=== PATIENT | female | born 1950 | race Caucasian/White ===

== ENCOUNTER 2017-02-13 09:07 | Emergency (ER) | payer OTHER ==
[~2017-02-13] VITALS: Ht 160 cm; Wt 63.0 kg
[~2017-02-13 09:07] MED LIST: LISI-725 PO; METO25TA56 PO
[2017-02-13 09:12] VITALS: TEMP 36.7; Ht 160 cm; Wt 63.0 kg
--- NOTE | 2017-02-13 10:24 | EMERGENCY ROOM VISIT NOTE ---
ED Visit Note First contact with patient: 09:57 CHIEF COMPLAINT: Tick in the left flank HISTORY OF PRESENT ILLNESS: Patient is a 66-year-old white female who presents to emergency department for evaluation of a tick bite. She noticed it on her lower back/left flank early this morning. She attempted but was unable to remove it. She states that it has been on for less than 24 hours. REVIEW OF SYSTEMS: Head: No headache, injury or neck pain. A Neck: No pain , stiffness, or swelling. Neurological: No headache, new changes in mental status, vertigo, focal weakness, numbness. Gastrointestinal: No abdominal pain , blood in stools, diarrhea, loss of appetite, nausea, or vomiting. General: No fever or chills, fatigue, loss of appetite, or significant recent weight gain or loss. PMH: Electronic medical records are reviewed and summarized as above/below. See Problem List.. SOCIAL HISTORY: Patient lives at home. Non-smoker, occasional alcohol use. PHYSICAL EXAM: There is an intact tick on left low back. There is a small zone of inflammation around it. EMERGENCY DEPARTMENT COURSE: After alcohol cleansing, the intact tick was removed with the Tick Twister device. Bacitracin and bandaid were applied. 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 PERFUME (Allergy, Severe, SWELLING, HEART RACE, HEADACHE, 02/13/17) GASOLINE (Allergy, Intermediate, SWELLING, HEART RACE, HEADACHE., 02/13/17) Vital Signs Date Time Temp Pulse Resp B/P Pulse Ox O2 Delivery O2 Flow Rate FiO2 02/13/17 10:41 76 20 221/106 96 02/13/17 09:12 36.7 95 16 215/109 97 Room Air Departure Information Impression Primary Impression: Tick bite Prescriptions No Active Prescriptions or Reported Meds Referrals No Doctor, Assigned (PCP) Patient Instructions My [facility] [place] Additional Instructions Use Ibuprofen or Tylenol as needed for pain/discomfort. Follow up with family physician for continued care and treatment; rashes, bullet lesion, muscle or joint pain. Watch for signs of infection; increasing redness and swelling, pus like drainage or fevers. Keep antibiotic ointment on the site for 2-3 days. Return to the ED for signs of infection.
[2017-02-13 10:41] VITALS: BP 221/106; PULSE 76; O2SAT 96
== END 2017-02-13 10:43 | disposition home or self-care (01) ==
LOC: C.EDB 09:08 → C.EDA 10:43
DX: S30.860A Insect bite (nonvenomous) of lower back and pelvis, initial encounter (principal); W57.XXXA Bitten or stung by nonvenomous insect and other nonvenomous arthropods, initial encounter

== ENCOUNTER 2017-10-26 21:26 | Observation (INO) | payer OTHER ==
[~2017-10-26] VITALS: Ht 160 cm; Wt 60.7 kg
[2017-10-26] MEDS ORDERED: HydrALAZINE HCL 20 MG/ML VIAL IV. STA ×3 (22:23→23:43)
--- NOTE | 2017-10-26 22:37 | EMERGENCY ROOM VISIT NOTE ---
History Report prepared by Arnav: Gilmer Baxter Under the Supervision of: Dr. Cole Delcid M.D. First contact with patient: 22:16 Chief Complaint: HYPERTENSION Stated Complaint: ELEVATED BP 250/130 History of Present Illness The patient is a 66 year old female who presents to the Emergency Room for evaluation of constant hypertension beginning two days ago. Patient notes longstanding history of HTN with previous ED visit about 5 years ago for HTN issues. Over last few days she has been feeling generalized weakness and notes she checked her BP at home last 2 days and was noted to have BP > 200. Earlier in the day she notes she had a burning sensation in her left chest area which seemed to resolve on its own with no other symptoms. Nothing makes better nor worse. Denies Headache, vision changes, appetite change, neck pain, individual arm/leg weakness, syncope, change in urinary/bowel. Took OTC Thai BP med ( Tenorec?). Previously prescribed Lisinopril but has not taken it recently. Denies smoking, drug, etoh use. Lives with family. Thai speaking but understands Burundian and family is good at translating and comfortable with this. History of unknown chemical exposure many years ago is noted. Source of History: patient Onset: two days ago Position: other (global) Symptom Intensity: blood pressure above 200 Quality: other (hypertension) Timing: constant Associated Symptoms: + weakness (generalized), No headache, No neck pain Note: She also complains of a burning in her chest. She denies any vision changes, individual arm/leg weakness, syncope, changes in her urinary/bowel, and changes in her appetite. Review of Systems See HPI for pertinent positives & negatives. A total of 10 systems reviewed and were otherwise negative. Past Medical & Surgical Medical Problems: (1) HTN (hypertension) Family History No pertinent family history stated. 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 PERFUME (Allergy, Severe, SWELLING, HEART RACE, HEADACHE, 02/13/17) GASOLINE (Allergy, Intermediate, SWELLING, HEART RACE, HEADACHE., 02/13/17) Physical Exam Vital Signs Date Time Temp Pulse Resp B/P (MAP) Pulse Ox O2 Delivery O2 Flow Rate FiO2 10/27/17 02:00 67 19 153/80 96 10/27/17 01:39 64 15 147/82 97 10/27/17 01:15 62 18 145/74 97 10/27/17 01:00 76 16 145/78 97 10/27/17 00:59 72 16 145/78 97 Room Air 10/27/17 00:40 64 18 154/75 98 10/27/17 00:35 64 23 97 10/27/17 00:30 48 14 102/55 97 10/27/17 00:20 67 20 97 10/27/17 00:15 66 16 146/77 97 10/27/17 00:14 144/77 10/26/17 23:58 62 16 153/79 97 Room Air 10/26/17 23:45 59 16 188/95 97 Room Air 10/26/17 23:30 61 16 193/93 97 10/26/17 23:29 199/95 10/26/17 23:00 63 16 183/87 96 10/26/17 22:52 63 20 161/81 96 10/26/17 22:45 61 17 184/90 96 10/26/17 22:36 59 20 200/92 97 10/26/17 22:31 55 14 10/26/17 22:26 57 16 10/26/17 22:21 62 16 225/108 10/26/17 22:21 60 22 225/108 10/26/17 22:19 59 10/26/17 21:59 36.7 65 18 219/123 96 Room Air Physical Exam GENERAL: Patient is well appearing and in no acute distress. HEENT: No acute trauma, normocephalic atraumatic, mucous membranes moist, no nasal congestion, no scleral icterus. NECK: No stridor, no adenopathy, no meningismus, trachea is midline. LUNGS: No dyspnea. Clear to auscultation and equal bilaterally. No wheeze, no rhonchi. HEART: Regular rate and rhythm. No murmurs, rubs, gallops appreciated. ABDOMEN: Soft, nontender, bowel sounds positive, no masses appreciated, no peritonitis. BACK: No midline tenderness, no CVA tenderness EXTREMITIES: Normal motion all extremities, no cyanosis, no edema. NEUROLOGIC: Alert and oriented, no acute motor or sensory deficits, no focal weakness, cranial nerves grossly intact. SKIN: No rash, no jaundice, no diaphoresis. Medical Decision & Procedures ER Provider Diagnostic Interpretation: Radiology results and stated below per my review and radiologist interpretation: X ray results are stated below per my interpretation: Chest: 1 view: No infiltrate, no effusion, normal cardiac border. Mildly enlarged heart compared to Chest X-RAY from several years ago. CT HEAD: Compared to 11/05/2011 No acute intracranial process. Minimal sinus disease. Radiologist: Noa Pinto M.D. CTA CHEST: No evidence of pulmonary embolism or aortic dissection. Small hiatal hernia. Mild atelectatic changes. No pneumothorax or pleural effusion. Laboratory Results 10/26/17 22:20 Red Blood Count 4.71, Mean Corpuscular Volume 92.4, Mean Corpuscular Hemoglobin 31.2, Mean Corpuscular Hemoglobin Concent 33.8, Mean Platelet Volume 10.2, Neutrophils (%) (Auto) 52.0, Lymphocytes (%) (Auto) 39.7, Monocytes (%) (Auto) 5.9, Eosinophils (%) (Auto) 1.4, Basophils (%) (Auto) 0.8, Neutrophils # (Auto) 5.11, Lymphocytes # (Auto) 3.90, Monocytes # (Auto) 0.58, Eosinophils # (Auto) 0.14, Basophils # (Auto) 0.08 10/26/17 22:20 Test 10/26/17 00:00 10/26/17 22:20 Urine Color YELLOW Urine Appearance CLEAR (CLEAR) Urine pH 7.0 (4.5-7.5) Urine Specific [place] 1.008 (1.000-1.030) Urine Protein NEG (NEG) Urine Glucose (UA) NEG (NEG) Urine Ketones NEG (NEG) Urine Occult Blood NEG (NEG) Urine Nitrite NEG (NEG) Urine Bilirubin NEG (NEG) Urine Urobilinogen NEG (NEG) Urine Leukocyte Esterase TRACE (NEG) Urine WBC (Auto) 1-5 /hpf (0-5) Urine RBC (Auto) 0-4 /hpf (0-4) Urine Hyaline Casts (Auto) 0 /lpf (0-5) Urine Epithelial Cells (Auto) 0-5 /lpf (0-5) Urine Bacteria (Auto) NEG (NEG) White Blood Count 9.83 K/uL (4.8-10.8) Red Blood Count 4.71 M/uL (4.2-5.4) Hemoglobin 14.7 g/dL (12.0-16.0) Hematocrit 43.5 % (37-47) Mean Corpuscular Volume 92.4 fL (80-100) Mean Corpuscular Hemoglobin 31.2 pg (25-34) Mean Corpuscular Hemoglobin Concent 33.8 g/dl (32-36) Platelet Count 290 K/uL (130-400) Mean Platelet Volume 10.2 fL (7.4-10.4) Neutrophils (%) (Auto) 52.0 % Lymphocytes (%) (Auto) 39.7 % Monocytes (%) (Auto) 5.9 % Eosinophils (%) (Auto) 1.4 % Basophils (%) (Auto) 0.8 % Neutrophils # (Auto) 5.11 K/uL (1.4-6.5) Lymphocytes # (Auto) 3.90 K/uL (1.2-3.4) Monocytes # (Auto) 0.58 K/uL (0.11-0.59) Eosinophils # (Auto) 0.14 K/uL (0-0.5) Basophils # (Auto) 0.08 K/uL (0-0.2) RDW Standard Deviation 42.8 fL (36.4-46.3) RDW Coefficient of Variation 12.7 % (11.5-14.5) Immature Granulocyte % (Auto) 0.2 % Immature Granulocyte # (Auto) 0.02 K/uL (0.00-0.02) Anion Gap 6.0 mmol/L (3-11) Est Creatinine Clear Calc Drug Dose 45.9 ml/min Estimated GFR () 67.7 Estimated GFR (Non- 58.4 BUN/Creatinine Ratio 20.8 (10-20) Calcium Level 9.1 mg/dl (8.5-10.1) Magnesium Level 2.4 mg/dl (1.8-2.4) Total Bilirubin 0.6 mg/dl (0.2-1) Direct Bilirubin < 0.1 mg/dl (0-0.2) Aspartate Amino Transf (AST/SGOT) 22 U/L (15-37) Alanine Aminotransferase (ALT/SGPT) 26 U/L (12-78) Alkaline Phosphatase 68 U/L (45-117) Troponin I 0.021 ng/ml (0-0.045) Total Protein 8.0 gm/dl (6.4-8.2) Albumin 4.1 gm/dl (3.4-5.0) Thyroid Stimulating Hormone (TSH) 18.800 uIu/ml (0.300-4.500) Laboratory results as reviewed by me. Medications Administered Medications (Trade) Dose Ordered Sig/Nicki Route Start Time Stop Time Status Last Admin Dose Admin Hydralazine HCl (HydrALAZINE INJ) 10 mg NOW STAT IV. 10/26/17 22:23 10/26/17 22:25 DC 10/26/17 22:29 10 MG Hydralazine HCl (HydrALAZINE INJ) 5 mg NOW STAT IV. 10/26/17 23:43 10/26/17 23:44 DC 10/26/17 23:49 5 MG Sodium Chloride 1,000 ml @ 75 mls/hr [id number] STAT IV 10/27/17 00:31 10/27/17 03:38 DC 10/27/17 00:38 75 MLS/HR Ondansetron HCl (Zofran Inj) 4 mg STK-MED ONCE .ROUTE 10/27/17 00:33 10/27/17 00:34 DC 10/27/17 00:36 4 MG ECG Indication: other (hypertension) Rate (beats per minute): 59 Rhythm: sinus bradycardia Findings: T-wave inversion (Lateral), no ectopy, other (Mild ST depressions across lateral leads, no STEMI) Comparison ECG Date: 11/05/2011 Change: Compared to previous, T wave inversions are new. ED Course 2216: The patient was evaluated in room A3. A complete history and physical exam was performed. 0020: I reevaluated the patient. Her blood pressure improved to the systolic 150s. She has no current symptoms and is agreeable to hospitalist evaluation. 0022: Upon reevaluation, the patient is stable. Discussed results and treatment plan with the patient. She verbalized understanding and agreement with the treatment plan. The patient will be evaluated for further management. Discussed the patient's case with Dr. Janice Torres [facility]. The patient will be evaluated for further treatment and disposition. 0031: I spoke to Dr. Camacho. He requests a CT angio of the patient's chest. Medical Decision Differential: Benign Hypertension, Hypertensive Urgency/Emergency, Cardiovascular Pathology, Endocrine, Metabolic/Electrolyte, Renal Disease, Endorgan Damage, amongst other pathologies entertained. 66 yr old deneen arrives with severe HTN which is associated with some generalized weakness and noted EKG abnormalities which have changed in lateral leads. Given 10mg Hydralazine with rapid drop in BP to point where she noted some visual changes and mild headache, thus CT head ordered which was negative. BP started trending up and thus given just 5mg IV hydralazine with even further BP drop and resultant nausea, vomiting, bradycardia. Zofran for symptoms and doing a bit better. Labs, CXR unremarkable. hospitalist in to evaluate and requested that patient have CTA Chest done which was fortunately unremarkable. Will bring in to hospitalist service for further evaluation and treatment. Of note, TSH quite off which is consistent with not taking her medications. Head Trauma GCS Score: 15 Medication Reconcilliation Current Medication List: was personally reviewed by me Blood Pressure Screening Patient's blood pressure: Elevated blood pressure Blood pressure will be monitored closely by hospitalist. Consults Time Called: 002 Consulting Physician: Dr. Camacho - Melissa [facility] Returned Call: 0022 Discussed the patient's case. The patient will be evaluated for further treatment and disposition. 0031: Dr. Camacho requests a CT angio of the patient's chest. Impression Primary Impression: Hypertensive emergency Additional Impressions: Acute electrocardiogram changes Generalized weakness Hypothyroidism Scribe Attestation The scribe's documentation has been prepared under my direction and personally reviewed by me in its entirety. I confirm that the note above accurately reflects all work, treatment, procedures, and medical decision making performed by me. Departure Information Dispostion Being Evaluated By Hospitalist Referrals No Doctor, Assigned (PCP) Patient Instructions My [facility] Problem Qualifiers
[2017-10-26] MEDS ORDERED: [UNRECOGNIZED DRUG - OTHER] PO (22:48)
--- NOTE | 2017-10-26 22:49 | DIAGNOSTIC IMAGING REPORT ---
CHEST ONE VIEW PORTABLE CLINICAL HISTORY: Chest Pain dyspnea COMPARISON STUDY: No previous studies for comparison. FINDINGS: The bones soft tissues and hemidiaphragms are normal. The cardiomediastinal silhouette is normal. The lungs are clear. The pulmonary vasculature is normal. IMPRESSION: Negative chest. The above report was generated using voice recognition software. It may contain grammatical, syntax or spelling errors. Electronically signed by: Hakan Ruiz M.D. 10/26/2017 10:47 PM Dictated Date/Time: 10/26/2017 10:46 PM
[2017-10-26 22:56] LABS: BASO % 0.8 %; BASO ABS # 0.08 K/uL (0-0.2); EOS % 1.4 %; EOS ABS # 0.14 K/uL (0-0.5); HEMATOCRIT 43.5 % (37-47); HEMOGLOBIN 14.7 g/dL (12.0-16.0); IG# 0.02 K/uL (0.00-0.02); LYMPH % 39.7 %; MEAN CELL VOLUME 92.4 fL (80-100); MEAN CORPUSCULAR HEMOGLOBIN 31.2 pg (25-34); MEAN CORPUSCULAR HGB CONC 33.8 g/dl (32-36); MEAN PLATELET VOLUME 10.2 fL (7.4-10.4); MONO % 5.9 %; MONO ABS # 0.58 K/uL (0.11-0.59); NEUT ABS # 5.11 K/uL (1.4-6.5); PLATELET COUNT 290 K/uL (130-400); RED CELL DISTRIBUTION WIDTH CV 12.7 % (11.5-14.5); RED CELL DISTRIBUTION WIDTH SD 42.8 fL (36.4-46.3); WHITE BLOOD COUNT 9.83 K/uL (4.8-10.8)
[2017-10-26 23:12] LABS: BLOOD UREA NITROGEN 21 mg/dl (7-18); CALCIUM 9.1 mg/dl (8.5-10.1); CARBON DIOXIDE 28 mmol/L (21-32); CREATININE 1.01 mg/dl (0.60-1.20); GLUCOSE 111 mg/dl (70-99); POTASSIUM 3.2 mmol/L (3.5-5.1); SODIUM 138 mmol/L (136-145)
[2017-10-27] MEDS ORDERED: ONDANSETRON INJ 2 MG/ML 2 ML VIAL IV STA (00:31)
[2017-10-27] MEDS ORDERED: SODIUM CHLORIDE 0.9% 1000ML 1,000 ML IV STA (00:31)
[2017-10-27] MEDS ORDERED: ONDANSETRON INJ 2 MG/ML 2 ML VIAL ONE (00:33)
[2017-10-27] MEDS ORDERED: OPTIRAY 320 IV PRN (00:45)
[2017-10-27] MEDS ORDERED: POTASSIUM CHLORIDE 10 MEQ TABCR PO STA (02:13)
[2017-10-27] MEDS ORDERED: ACETAMINOPHEN 325 MG TAB PO PRN (02:15)
[2017-10-27] MEDS ORDERED: ONDANSETRON 8MG OD TAB PO PRN (02:15)
[2017-10-27] MEDS ORDERED: NITROGLYCERIN 0.4 MG SL PER TAB CHARGE SL PRN (02:15)
[2017-10-27 03:02] LABS: ALBUMIN 4.1 gm/dl (3.4-5.0); ALKALINE PHOSPHATASE 68 U/L (45-117); ALT/SGPT 26 U/L (12-78); AST/SGOT 22 U/L (15-37)
[2017-10-27 03:27] VITALS: BP 191/88; PULSE 64; TEMP 36.7; O2SAT 97; Ht 160 cm; Wt 60.7 kg
[2017-10-27] MEDS ORDERED: NSS + 20MEQ KCL 1000ML 1,000 ML IV SCH (03:30)
[2017-10-27 03:37] VITALS: BP 151/78
[2017-10-27] MEDS ORDERED: IV FLUIDS COMPLETED PRN (03:45)
--- NOTE | 2017-10-27 04:43 | History and Physical ---
History & Physical Date & Time of Service: Oct 27, 2017 at 04:33 Chief Complaint: Acute Electrocardiogram Changes, Hypertensive Primary Care Physician: RV. Nunn MD History of Present Illness Source: patient, family, hospital records History of present illness is limited as performed through Norwegian-speaking stripper and taper. Family reports that she has had generalized weakness, and she had checked her blood pressure the past 2 days at home and reports her systolic blood pressure was greater than 200. She did have a burning sensation on the left side of her chest, which did resolve earlier in the day without intervention. This chest pain did return as she had gotten hydralazine via the ED to lower pressure, and a CTA of the chest was recommended at that time performed was negative for dissection or PE. Patient has previously been prescribed lisinopril, and reportedly took an unknown [id number] Norwegian blood pressure medication, but a generally been noncompliant with medical therapy. Patient reportedly had some form of unknown chemical exposure in the past. 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 PERFUME (Allergy, Severe, SWELLING, HEART RACE, HEADACHE, 02/13/17) GASOLINE (Allergy, Intermediate, SWELLING, HEART RACE, HEADACHE., 02/13/17) Home Medications Scheduled PRN [tenorik], 1 TAB PO DAILY PRN for hnt Review of Systems Review of systems is as relayed by her Norwegian-speaking family as stripper and taper and is somewhat limited in that regard, and is as noted above. Physical Exam Vital Signs Date Time Temp Pulse Resp B/P (MAP) Pulse Ox O2 Delivery O2 Flow Rate FiO2 10/27/17 03:37 151/78 (102) 10/27/17 03:27 36.7 64 18 191/88 97 Room Air 10/27/17 02:30 66 21 166/88 97 10/27/17 02:27 64 10/27/17 02:00 67 19 153/80 96 10/27/17 01:39 64 15 147/82 97 10/27/17 01:15 62 18 145/74 97 10/27/17 01:00 76 16 145/78 97 10/27/17 00:59 72 16 145/78 97 Room Air 10/27/17 00:40 64 18 154/75 98 10/27/17 00:35 64 23 97 10/27/17 00:30 48 14 102/55 97 10/27/17 00:20 67 20 97 10/27/17 00:15 66 16 146/77 97 10/27/17 00:14 144/77 10/26/17 23:58 62 16 153/79 97 Room Air 10/26/17 23:45 59 16 188/95 97 Room Air 10/26/17 23:30 61 16 193/93 97 10/26/17 23:29 199/95 10/26/17 23:00 63 16 183/87 96 10/26/17 22:52 63 20 161/81 96 10/26/17 22:45 61 17 184/90 96 10/26/17 22:36 59 20 200/92 97 10/26/17 22:31 55 14 10/26/17 22:26 57 16 10/26/17 22:21 62 16 225/108 10/26/17 22:21 60 22 225/108 10/26/17 22:19 59 10/26/17 21:59 36.7 65 18 219/123 96 Room Air The patient is awake, alert and oriented 3, well developed and well nourished, normocephalic and atraumatic, lying in bed and in intermittently has a painful expression on her face. HEENT--PERRL, EOMI, mucous membranes and oropharynx dry. Neck--supple. No JVD. No bruits. Thyroid normal, trachea midline, no adenopathy. Heart--normal S1 and S2. No murmurs, rubs or gallops. Lungs--clear bilaterally, no respiratory distress, no accessory muscle use. Abdomen--normal bowel sounds and soft. Nontender. Nondistended, no hernias or masses, no organomegaly. Extremities--no cyanosis or clubbing. No edema. There are good distal pulses b/ l. Dermatologic--normal skin turgor, normal color, no abnormal lymph nodes, no rash. Neurologic--cranial nerves II through XII grossly intact. Rheumatologic--normal range of motion. Psychiatric--flat affect, but does appear to be periodically uncomfortable Diagnostics Laboratory Results Results Past 24 Hours Test 10/26/17 22:20 10/27/17 03:52 Range/Units White Blood Count 9.83 4.8-10.8 K/uL Red Blood Count 4.71 4.2-5.4 M/uL Hemoglobin 14.7 12.0-16.0 g/dL Hematocrit 43.5 37-47 % Mean Corpuscular Volume 92.4 80-100 fL Mean Corpuscular Hemoglobin 31.2 25-34 pg Mean Corpuscular Hemoglobin Concent 33.8 32-36 g/dl Platelet Count 290 130-400 K/uL Mean Platelet Volume 10.2 7.4-10.4 fL Neutrophils (%) (Auto) 52.0 % Lymphocytes (%) (Auto) 39.7 % Monocytes (%) (Auto) 5.9 % Eosinophils (%) (Auto) 1.4 % Basophils (%) (Auto) 0.8 % Neutrophils # (Auto) 5.11 1.4-6.5 K/uL Lymphocytes # (Auto) 3.90 1.2-3.4 K/uL Monocytes # (Auto) 0.58 0.11-0.59 K/uL Eosinophils # (Auto) 0.14 0-0.5 K/uL Basophils # (Auto) 0.08 0-0.2 K/uL RDW Standard Deviation 42.8 36.4-46.3 fL RDW Coefficient of Variation 12.7 11.5-14.5 % Immature Granulocyte % (Auto) 0.2 % Immature Granulocyte # (Auto) 0.02 0.00-0.02 K/uL Sodium Level 138 136-145 mmol/L Potassium Level 3.2 3.5-5.1 mmol/L Chloride Level 104 98-107 mmol/L Carbon Dioxide Level 28 21-32 mmol/L Anion Gap 6.0 3-11 mmol/L Blood Urea Nitrogen 21 7-18 mg/dl Creatinine 1.01 0.60-1.20 mg/dl Est Creatinine Clear Calc Drug Dose 45.9 ml/min Estimated GFR () 67.7 Estimated GFR (Non- 58.4 BUN/Creatinine Ratio 20.8 10-20 Random Glucose 111 70-99 mg/dl Calcium Level 9.1 8.5-10.1 mg/dl Magnesium Level 2.4 1.8-2.4 mg/dl Total Bilirubin 0.6 0.2-1 mg/dl Direct Bilirubin < 0.1 0-0.2 mg/dl Aspartate Amino Transf (AST/SGOT) 22 15-37 U/L Alanine Aminotransferase (ALT/SGPT) 26 12-78 U/L Alkaline Phosphatase 68 45-117 U/L Troponin I 0.021 0-0.045 ng/ml Total Protein 8.0 6.4-8.2 gm/dl Albumin 4.1 3.4-5.0 gm/dl Thyroid Stimulating Hormone (TSH) 18.800 0.300-4.500 uIu/ml Diagnostic Radiology Patient Name: ALE BLAS Unit Number: [id number] Dictated: 10/26/172245 Transcribed: 10/26/172245 MS Printed Date/Time: [~ rep prt dt]/[~ rep prt tm] [~ rep ct labl] - [~ rep ct ivnm] [facility] Radiology Department [place] [id number] Dictated: 10/26/172245 Transcribed: 10/26/172245 MS Printed Date/Time: [~ rep prt dt]/[~ rep prt tm] [~ rep ct labl] - [~ rep ct ivnm] [~ rep ct add3]] CHEST ONE VIEW PORTABLE CLINICAL HISTORY: Chest Pain dyspnea COMPARISON STUDY: No previous studies for comparison. FINDINGS: The bones soft tissues and hemidiaphragms are normal. The cardiomediastinal silhouette is normal. The lungs are clear. The pulmonary vasculature is normal. IMPRESSION: Negative chest. The above report was generated using voice recognition software. It may contain grammatical, syntax or spelling errors. Electronically signed by: Hakan Ruiz M.D. 10/26/2017 10:47 PM Dictated Date/Time: 10/26/2017 10:46 PM The status of this report is Signed. Draft = Not yet reviewed or approved by Radiologist. Signed = Reviewed and approved by Radiologist. <AttendingPhy></AttendingPhy> <FamilyPhy>No Doctor, Assigned</FamilyPhy> < PrimaryPhy>No Doctor, Assigned</PrimaryPhy> <UnitNumber>[id number]</UnitNumber> <VisitNumber>[id number]</VisitNumber> <PatientName>ALE BLAS</ PatientName> <DateOfBirth>1950</DateOfBirth> <Location>[facility]</Location> < ServiceDate>10/26/17</ServiceDate> <MNE>ESINDI</MNE> <OrderingPhy>Cole Delcid M.D.</OrderingPhy> <OrderingPhyMNE>f rep ord dr agosto</OrderingPhyMNE> < DictatingPhyMNE>f rep dict dr agosto</DictatingPhyMNE> <CCListMNE>f rep ct norrise</ CCListMNE> <AdmittingPhyMNE>f pt admit dr agosto</AdmittingPhyMNE> <AttendingPhyMNE >f pt attend dr agosto</AttendingPhyMNE> <ConsultingPhyMNE>f pt consult dr agosto</ConsultingPhyMNE> <FamilyPhyMNE>f pt fam dr agosto</FamilyPhyMNE> <OtherPhyMNE>f pt other dr agosto</OtherPhyMNE> < PrimaryPhyMNE>f pt prim care dr agosto</PrimaryPhyMNE> <ReferringPhyMNE>f pt referring dr agosto</ReferringPhyMNE> EKG EKG shows normal sinus rhythm at 61 bpm, with T-wave inversions in leads 1 and aVL, V5 and V6 Impression Assessment and Plan Hypertensive urgency/abnormal EKG-- The patient will be admitted to telemetry for serial cardiac enzymes, serial EKG's, cardiac rhythm monitoring and a 2-D echocardiogram with Dopplers. Patient did get good blood pressure control at the addition of hydralazine 10 mg then 5 mg IV by the ED. We'll place on lisinopril 20 mg by mouth twice a day, and aspirin 81 mg every morning Give potassium chloride 40 mEq by mouth orally for potassium of 3.2. Check a magnesium level. NSS + KCl 20 mEq at 50 ML's per hour. Serial CBC with differential, BMP and magnesium levels. Check a renin and aldosterone level. Consult cardiology for abnormal EKG. Hypothyroidism-- Start Synthroid 50 g daily beginning in the a.m. tomorrow. Will need repeat TSH, free T4 free T3 in 4 weeks. Check a hemoglobin A1c and fasting lipid panel Level of Care Telemetry Advanced Directives Existing Advance Directive: No Existing Living Will: No Existing Power of Carriage Operator: No Resuscitation Status FULL RESUSCITATION VTE Prophylaxis VTE Risk Assessment Done? Y/N: Yes Risk Level: Moderate Given or contraindicated: SCD's
[2017-10-27] MEDS ORDERED: PNEUMOCOCCAL POLYSACCHARIDES 25 MCG/0.5 ML VIAL/SYR IM. ONE (05:15)
[2017-10-27] MEDS ORDERED: INFLUENZA ADMINISTRATION CHARGE ONE (05:15)
[2017-10-27] MEDS ORDERED: PNEUMOCOCCAL ADMINISTRATION CHARGE ONE (05:15)
[2017-10-27] MEDS ORDERED: INFLUENZA VIRUS QUAD VACCINE 0.5 ML SYR IM. ONE (05:15)
[2017-10-27] MEDS ORDERED: LEVOTHYROXINE 50 MCG TAB PO SCH (06:00)
--- NOTE | 2017-10-27 06:32 | DIAGNOSTIC IMAGING REPORT ---
CT HEAD WITHOUT CONTRAST (CT) CLINICAL HISTORY: Visual disturbance, lightheadedness, hypertension. COMPARISON STUDY: 11/05/2011 TECHNIQUE: Axial CT of the brain is performed from the vertex to the skull base. IV contrast was not administered for this examination. A dose lowering technique was utilized adhering to the principles of ALARA. CT DOSE: 537.48 mGy.cm FINDINGS: No intra or extra-axial mass lesions are visualized. There is no CT evidence of acute cortical infarction. There is no evidence of midline shift. There is no acute hemorrhage. No calvarial fractures are visualized. There is no evidence of pathologic ventricular dilatation. There are chronic inflammatory changes involving the left ethmoid sinuses with sinus wall thickening IMPRESSION: No acute intracranial findings Electronically signed by: Jensen Patel M.D. 10/27/2017 6:31 AM Dictated Date/Time: 10/27/2017 6:29 AM
[2017-10-27 07:32] VITALS: BP 153/77; PULSE 61; TEMP 36.6; O2SAT 97
[2017-10-27 07:39] LABS: HEMOGLOBIN A1C 5.6 % (4.5-5.6)
[2017-10-27] MEDS ORDERED: ASPIRIN 81 MG ECTAB PO SCH (09:00)
[2017-10-27] MEDS ORDERED: LISINOPRIL 20 MG TAB PO SCH (09:00)
--- NOTE | 2017-10-27 09:08 | DIAGNOSTIC IMAGING REPORT ---
CHEST COMBO ANGIO DISSECTION CLINICAL HISTORY: Hypertension. Chest pain. COMPARISON STUDY: Chest radiograph October 26, 2017 and November 05, 2011. TECHNIQUE: Unenhanced and arterial phase imaging of the chest was performed. Injection of 118 cc of Optiray 320 IV was uneventful. Sagittal and coronal reconstructions were viewed as well as maximal intensity projections on an independent 3-D workstation. FINDINGS: The caliber of the thoracic aorta is normal. There is no intramural hematoma or dissection within the thoracic aorta. The heart is mildly enlarged. There is no pericardial effusion. No enlarged axillary, mediastinal or hilar lymph nodes are present. There is no pneumomediastinum. A small hiatal hernia is noted. The central airways are patent. There is no consolidation to suggest pneumonia. Subpleural opacities reflect atelectasis. No pneumothorax or pleural effusion is noted. Bony thorax is unremarkable. A 1 cm heavily calcified focus within the pancreatic neck is of doubtful significance. IMPRESSION: 1. No thoracic aortic dissection. 2. No acute intrathoracic findings. 3. Small hiatal hernia. 4. Mild cardiomegaly. Electronically signed by: Dawson Thapa M.D. 10/27/2017 9:06 AM Dictated Date/Time: 10/27/2017 6:45 AM
[2017-10-27 10:41] LABS: CKMB 1.5 ng/ml (0.5-3.6)
[2017-10-27 10:52] VITALS: BP 132/72; PULSE 61; TEMP 36.8; O2SAT 95
[2017-10-27] MEDS ORDERED: OMEGCAP2 PO (11:25)
[2017-10-27] MEDS ORDERED: LSN40 PO (11:25)
[2017-10-27] MEDS ORDERED: ASPEC81 PO (11:25)
--- NOTE | 2017-10-27 11:32 | Discharge Instructions ---
Discharge Instructions Date of Service Oct 27, 2017. Admission Reason for Admission: Uncontrolled hypertension, Dyslipidemia Discharge Discharge Diagnosis / Problem: Uncontrolled hypertension, Dyslipidemia Discharge Goals Goal(s): Improve function, Improve disease control Activity Recommendations Activity Limitations: resume your previous activity . Instructions / Follow-Up Instructions / Follow-Up Medications: - LISINOPRIL: 40mg daily, this is for blood pressure, next dose is due tomorrow morning, you will need follow up blood work in a few weeks with Dr. Dumont for potassium level - FISH OIL: take over the counter, three times a day - ASPIRIN: 81mg daily, enteric coated to protect stomach Hypertension: better controlled on Lisinopril 40mg daily, you NEED to take this every day please follow up closely with Dr. Dumont next week to check your blood pressure as outpatient on Lisinopril, you may need additional medication you need to follow a low sodium diet, less than 2gm a day, read nutrition labels to see how much salt is in food Dyslipidemia (abnormal cholesterol): total cholesterol and LDL cholesterol both high as we discussed, likely a combination of eating too much cholesterol and your body making too much cholesterol my recommendation would be a statin such as Lipitor you can start with the fish oils for now but you need to discuss taking a statin with Dr. Dumont follow a low cholesterol, low fat diet and get regular exercise 5 days a week at a minimum Lastly, as we discussed, untreated high blood pressure and high cholesterol put you at a risk for heart attack and stroke, please take your medications and follow up with your doctor. FOLLOW UP - Dr. Dumont next week Current Hospital Diet Patient's current hospital diet: AHA Diet (Heart Healthy) Discharge Diet Recommended Diet: Low Sodium Diet (2gm Na), Low Fat Diet Pending Studies Studies pending at discharge: no Laboratory Results Hemoglobin A1c Test 10/27/17 05:10 Range/Units Estimated Average Glucose 114 mg/dl Hemoglobin A1c 5.6 4.5-5.6 % Lipid Panel Test 10/27/17 05:10 Range/Units Triglycerides Level 122 0-150 mg/dl Cholesterol Level 273 H 0-200 mg/dl HDL Cholesterol 56 mg/dl Cholesterol/HDL Ratio 4.9 LDL Cholesterol, Calculated 193 mg/dl Medical Emergencies . Who to Call and When: Medical Emergencies: If at any time you feel your situation is an emergency, please call 911 immediately. . Non-Emergent Contact Non-Emergency issues call your: Primary Care Provider Call Non-Emergent contact if: you have any medication questions . . "Provider Documentation" section prepared by Salvador Villegas. . VTE Core Measure Inpt VTE Proph given/why not?: SCD's [place] Drug Monitoring Program Search Results: no issues identified
[2017-10-27 11:46] VITALS: BP 153/77; PULSE 61; TEMP 36.6; O2SAT 97
[2017-10-27] MEDS ORDERED: NURSING VERBAL MED ORDER STA (11:54)
[2017-10-27] MEDS ORDERED: LISINOPRIL 20 MG TAB PO ONE (12:15)
[2017-10-27] MEDS ORDERED: SYN50 PO (13:39)
--- NOTE | 2017-10-28 07:51 | Discharge Summary ---
Discharge Summary Date of Service Oct 27, 2017. Discharge Summary Admission Date: Oct 27, 2017 at 02:01 Discharge Date: Oct 27, 2017 Discharge Disposition: Home Principal Diagnosis: Uncontrolled hypertension Problems/Secondary Diagnoses: Dyslipidemia Hypothyroidism Immunizations: Have You Had Influenza Vaccine: No History of Tetanus Vaccine?: Unknown History of Pneumococcal: No History of Hepatitis B Vaccine: No Procedures: none Consultations: none Medication Reconciliation New Medications: Levothyroxine Sodium (Synthroid) 50 Mcg Tab 1 TAB PO DAILY, #30 TABS 1 Refill [place]-3 Fatty Acids (Fish Oil) 1 Cap Cap 1 CAP PO TID for 30 Days, #90 CAP 1 Refill Aspirin (Aspirin EC Low Dose) 81 Mg Ectab 81 MG PO QAM, #30 TABS 1 Refill Lisinopril (Lisinopril) 40 Mg Tab 40 MG PO DAILY for 30 Days, #30 TABS 2 Refills Discontinued Medications: [tenorik] () 1 TAB PO DAILY PRN for hnt Discharge Exam patient feeling much better in the morning, no chest pain, no back pain, no dyspnea. eating well, no issues urinating or moving bowels. discussed hypertension, importance of being compliant with Lisinopril and following low sodium diet, getting regular exercise, close follow up with her PCP discussed high cholesterol, high LDL, discussed that combined with her hypertension and family h/o stroke and [place], she should really be on a statin she did not want to start a statin just yet, wanted to take fish oil OTC and try to eat less fatty foods, will discuss with PCP discussed high TSH, low T4, she had some kind of exposure earlier in life, was told her thyroid was affected, will start on Synthroid Review of Systems: Constitutional: No fever, No chills, No sweats, No weight loss, No weakness , No fatigue, No problem reported Eyes: No worsening of vision, No eye pain, No redness, No discharge, No diplopia, No problem reported ENT: No hearing loss, No unusual epistaxis, No nasal symptoms, No sore throat, No tinnitus, No dental problems, No trouble swallowing, No problem reported Respiratory: No cough, No sputum, No wheezing, No shortness of breath, No dyspnea on exertion, No dyspnea at rest, No hemoptysis, No problem reported Cardiovascular: No chest pain, No orthopnea, No PND, No edema, No claudication, No palpitations, No problem reported Abdomen: No pain, No nausea, No vomiting, No diarrhea, No constipation, No GI bleeding, No problem reported Musculoskeletal: + joint pain (back pain, had it for a few days, got worse, now it is gone completely), No muscle pain, No swelling, No calf pain, No problem reported Genitourinary - Female: No dysuria, No urinary frequency, No urinary urgency , No urinary incontinence, No urinary retention, No hematuria Neurologic: No memory loss, No paralysis, No weakness, No numbness/tingling , No vertigo, No balance problems, No problem reported Psychiatric: No depression symptoms, No anhedonism, No anxiety, No insomnia , No substance abuse, No problem reported Endocrine: No fatigue, No excessive thirst, No excessive urination, No problem reported Hematologic / Lymphatic: No abnormal bleeding/bruising, No clotting problems , No swollen lymph nodes, No night sweats, No problem reported Integumentary: No rash, No itch, No new/changing skin lesions, No color change, No bleeding, No problem reported Physical Exam: General Appearance: WD/WN, no apparent distress Eyes: normal inspection, EOMI, sclerae normal ENT: normal ENT inspection, hearing grossly normal, pharynx normal Neck: supple, no adenopathy, no JVD, trachea midline Respiratory/Chest: chest non-tender, lungs clear, normal breath sounds, no respiratory distress, no accessory muscle use Cardiovascular: regular rate, rhythm, no edema, no gallop, no JVD, no murmur , normal peripheral pulses Abdomen / GI: normal bowel sounds, non tender, soft, no organomegaly Extremities: normal inspection, no calf tenderness, normal capillary refill , no pedal edema, normal range of motion, pelvis stable 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 CT chest was negative for aortic dissection and CT head was normal. EKG was NSR with some non-specific possible ST changes in lateral leads, but the patient denied chest pain and pressure. Was started on Lisinopril and admitted for rule out of ACS and uncontrolled HTN - Uncontrolled HTN: BP improved to 150's systolic consistently on Lisinopril 20mg BID will d/c on Lisinopril 40mg PO daily, close follow up next week with PCP advised to eat a low sodium diet advised to get regular exercise (she claims that she walks every day) will see her PCP on Monday, BP recheck, may require additional medications should have BMP in a few weeks to check potassium - Dyslipidemia: high cholesterol overall, LDL 190 long discussion regarding risk of [place] and stroke given her family history recommended starting low dose statin therapy in addition to following low cholesterol diet she refused at this time, wants to take fish oil over the counter start aspirin 81mg daily - Hypothyroidism: TSH high at 11 and T4 low will start Synthroid 50mcg no real symptoms of hypothyroidism will need repeat TSH in 6 weeks - EKG changes: mild ST and TW changes but no chest pain or pressure troponin negative x 3 sets no further work up recommend controlling BP with Lisinopril, start aspirin for CAD protection if she would have chest pain as outpatient she could have a stress test does have a family h/o [place] and stroke Total Time Spent: Greater than 30 minutes This includes examination of the patient, discharge planning, medication reconciliation, and communication with other providers. Discharge Instructions Please refer to the electronic Patient Visit Report (Discharge Instructions) for additional information. Follow-Up Dr. Dumont next week Additional Copies To RV. Nunn MD
== END 2017-10-27 12:52 | disposition home or self-care (01) ==
LOC: C.EDB 21:26 → C.2T 10-27 02:01 → ENRESERV 10-27 02:27
PROVIDERS: ADMIT Hospitalist; ATTEND Internal Medicine
DX: I16.0 Hypertensive urgency (principal); E78.5 Hyperlipidemia, unspecified; E03.9 Hypothyroidism, unspecified; R94.31 Abnormal electrocardiogram [ECG] [EKG]; Z79.899 Other long term (current) drug therapy

== ENCOUNTER → 2017-10-30 | Outpatient (CLI) | payer OTHER ==
[~2017-10-30] MED LIST changes: +ASPEC81 PO; -LISI-725 PO; +LSN40 PO; -METO25TA56 PO; +OMEGCAP2 PO; +SYN50 PO
[2017-10-30 18:06] LABS: BLOOD UREA NITROGEN 13 mg/dl (7-18); CALCIUM 9.4 mg/dl (8.5-10.1); CARBON DIOXIDE 28 mmol/L (21-32); CREATININE 1.02 mg/dl (0.60-1.20); GLUCOSE 97 mg/dl (70-99); POTASSIUM 3.7 mmol/L (3.5-5.1); SODIUM 136 mmol/L (136-145)
== END | disposition home or self-care (01) ==
LOC: C.LAB1850 16:40
PROVIDERS: ATTEND Nurse Practitioner Adult Health
DX: E03.9 Hypothyroidism, unspecified (principal); I10 Essential (primary) hypertension

== ENCOUNTER → 2017-11-03 | Outpatient (CLI) | payer OTHER ==
--- NOTE | 2017-11-03 10:22 | DIAGNOSTIC IMAGING REPORT ---
SOFT TISS HEAD/NECK-THYROID HISTORY: Thyroid nodule R59.0 Cervical rifkeumbrplrsnoA83.9 HypothyroidismPlease early i COMPARISON: None. FINDINGS: Right lobe: Maximum dimension 4.8 cm. Heterogeneous internal architecture. 7 mm lower pole nodule Left lobe: 4.0 cm maximum dimension. Internal matrix heterogeneity. No significant nodularity. Isthmus: No nodules. Cervical neck several moderate cervical nodes bilaterally. IMPRESSION: 1. Moderate heterogeneity of both thyroid lobes, suggesting potential thyroiditis. 2. 7 mm lower pole nodule right thyroid lobe with a 6 trauma follow-up recommended. 3. Mild bilateral cervical adenopathy. The above report was generated using voice recognition software. It may contain grammatical, syntax or spelling errors. Electronically signed by: Hakan Ruiz M.D. 11/03/2017 10:21 AM Dictated Date/Time: 11/03/2017 10:18 AM
== END | disposition home or self-care (01) ==
LOC: C.ULTRBC 09:02
PROVIDERS: ATTEND Nurse Practitioner Adult Health
DX: E04.1 Nontoxic single thyroid nodule (principal); E03.9 Hypothyroidism, unspecified; R59.0 Localized enlarged lymph nodes

== ENCOUNTER 2017-11-08 15:22 | Emergency (ER) | payer OTHER ==
[~2017-11-08] VITALS: Ht 160 cm; Wt 60.6 kg
[2017-11-08 15:25] VITALS: TEMP 36.6; Ht 160 cm; Wt 60.6 kg
[2017-11-08] MEDS ORDERED: HYDROCHLOROTHIAZIDE 25 MG TAB PO STA (17:04)
[2017-11-08 17:06] VITALS: O2SAT 98
[2017-11-08 17:13] LABS: BASO % 0.4 %; BASO ABS # 0.04 K/uL (0-0.2); EOS % 0.5 %; EOS ABS # 0.05 K/uL (0-0.5); HEMATOCRIT 44.1 % (37-47); HEMOGLOBIN 14.9 g/dL (12.0-16.0); IG# 0.01 K/uL (0.00-0.02); LYMPH % 32.9 %; LYMPH ABS # 3.06 K/uL (1.2-3.4); MEAN CELL VOLUME 92.8 fL (80-100); MEAN CORPUSCULAR HEMOGLOBIN 31.4 pg (25-34); MEAN CORPUSCULAR HGB CONC 33.8 g/dl (32-36); MEAN PLATELET VOLUME 9.9 fL (7.4-10.4); MONO % 4.6 %; MONO ABS # 0.43 K/uL (0.11-0.59); NEUT % 61.5 %; NEUT ABS # 5.72 K/uL (1.4-6.5); PLATELET COUNT 323 K/uL (130-400); RED CELL DISTRIBUTION WIDTH CV 12.4 % (11.5-14.5); RED CELL DISTRIBUTION WIDTH SD 41.9 fL (36.4-46.3); WHITE BLOOD COUNT 9.31 K/uL (4.8-10.8)
[2017-11-08 17:23] LABS: ALBUMIN 4.2 gm/dl (3.4-5.0); ALT/SGPT 19 U/L (12-78); AST/SGOT 9 U/L (15-37); BLOOD UREA NITROGEN 17 mg/dl (7-18); CALCIUM 9.1 mg/dl (8.5-10.1); CARBON DIOXIDE 26 mmol/L (21-32); CREATININE 1.13 mg/dl (0.60-1.20); GLUCOSE 96 mg/dl (70-99); LIPASE 207 U/L (73-393); POTASSIUM 3.9 mmol/L (3.5-5.1); SODIUM 135 mmol/L (136-145)
--- NOTE | 2017-11-08 17:23 | EMERGENCY ROOM VISIT NOTE ---
History Report prepared by Arnav: Shara Orr Under the Supervision of: Dr. Fady Vernon M.D. First contact with patient: 16:53 Chief Complaint: TACHYCARDIA Stated Complaint: HIGH BLOOD PRESSURE, TACHYCARDIA Nursing Triage Summary: Patient's daughter reports "She has a hx of high blood pressure and was put on Lisinopril. She is having like warmth on the back of her head and heart. Her heart feels like is racing. Her lymph nodes are swollen." Daughter states "I think she is having a reaction to the Lisinopril." History of Present Illness The patient is a 66 year old female who presents to the Emergency Room with complaints of persistent allergy like symptoms that began one week ago. The patients daughter states that the patient was seen in the Emergency Department on 10/26/17 for hypertension, noting she was prescribed Lisinopril which helped reduce her hypertension. The patient had a blood pressure of 250/130 during her last visit. She states that an hour after the patient takes the medication she becomes short of breath, feels her heart racing, her lymph nodes swelling, and has a warm sensation throughout her body. The patient notes that she has similar symptoms when she is exposed to chemicals she is allergic to. The patient saw her primary care physician 2 days ago, noting her blood pressure was normal at the time of the visit but varies everyday, even after taking the Lisinopril. The patient notes she was also prescribed Hydrochlorothiazide, but has not taken it yet. Source of History: patient Onset: one week ago Position: other (global) Quality: other (allergy like symptoms) Timing: other (persistent) Associated Symptoms: + SOB Note: Associated symptoms include heart racing, swollen lymph nodes and a warm sensation throughout her body Review of Systems See HPI for pertinent positives & negatives. A total of 10 systems reviewed and were otherwise negative. Family History Heart disease Hypertension Social History Smoking Status: Never Smoker Smokeless Tobacco Use: No Alcohol Use: none Drug Use: none Marital Status: Housing Status: lives with significant other Current/Historical Medications Scheduled Amlodipine (Norvasc), 5 MG PO DAILY Aspirin (Aspirin Ec), 81 MG PO DAILY Fish Oil ([place]-3), 1 CAP PO DAILY Lisinopril (Prinivil), 40 MG PO DAILY Physical Exam Vital Signs Date Time Temp Pulse Resp B/P (MAP) Pulse Ox O2 Delivery O2 Flow Rate FiO2 11/08/17 18:09 70 18 178/93 98 Room Air 11/08/17 17:54 74 18 185/105 98 Room Air 11/08/17 17:06 98 Room Air 11/08/17 17:05 78 18 163/106 98 Room Air 11/08/17 16:40 74 11/08/17 15:30 98 Room Air 11/08/17 15:25 36.6 109 18 177/99 98 Room Air Physical Exam GENERAL: Patient is a healthy-appearing well-nourished female HEAD: Normocephalic atraumatic EYES: Ocular movements intact pupils equal and react to light OROPHARYNX mucous membranes are moist no exudates present no erythema or edema present NECK: Some swollen lymph nodes. Supple no nuchal rigidity CHEST: Good equal expansion LUNGS: Clear and equal to auscultation CARDIAC: Normal S1 and S2 ABDOMEN: Soft nontender no guarding BACK: No CVA tenderness EXTREMITIES: No pain upon palpation normal muscle strength in all groups no clubbing cyanosis or edema NEURO: Patient is following commands and answering questions appropriately. Alert and oriented x3 Cranial Nerves 2-12 grossly intact Medical Decision & Procedures ER Provider Diagnostic Interpretation: Radiology results as stated below per my review and radiologist interpretation: CHEST ONE VIEW PORTABLE CLINICAL HISTORY: Chest pain. COMPARISON STUDY: No previous studies for comparison. FINDINGS: Lung volumes are normal. Lungs are clear. No pneumothorax or pleural effusion is noted. Pulmonary vascularity is normal. Cardiomediastinal silhouette is unremarkable. IMPRESSION: No acute cardiopulmonary findings. Electronically signed by: Dawson Thapa M.D. 11/08/2017 5:51 PM Dictated Date/Time: 11/08/2017 5:50 PM Laboratory Results 11/08/17 16:50 Red Blood Count 4.75, Mean Corpuscular Volume 92.8, Mean Corpuscular Hemoglobin 31.4, Mean Corpuscular Hemoglobin Concent 33.8, Mean Platelet Volume 9.9, Neutrophils (%) (Auto) 61.5, Lymphocytes (%) (Auto) 32.9, Monocytes (%) (Auto) 4.6, Eosinophils (%) (Auto) 0.5, Basophils (%) (Auto) 0.4, Neutrophils # (Auto) 5.72, Lymphocytes # (Auto) 3.06, Monocytes # (Auto) 0.43, Eosinophils # (Auto) 0.05, Basophils # (Auto) 0.04 11/08/17 16:50 Test 11/08/17 16:50 White Blood Count 9.31 K/uL (4.8-10.8) Red Blood Count 4.75 M/uL (4.2-5.4) Hemoglobin 14.9 g/dL (12.0-16.0) Hematocrit 44.1 % (37-47) Mean Corpuscular Volume 92.8 fL (80-100) Mean Corpuscular Hemoglobin 31.4 pg (25-34) Mean Corpuscular Hemoglobin Concent 33.8 g/dl (32-36) Platelet Count 323 K/uL (130-400) Mean Platelet Volume 9.9 fL (7.4-10.4) Neutrophils (%) (Auto) 61.5 % Lymphocytes (%) (Auto) 32.9 % Monocytes (%) (Auto) 4.6 % Eosinophils (%) (Auto) 0.5 % Basophils (%) (Auto) 0.4 % Neutrophils # (Auto) 5.72 K/uL (1.4-6.5) Lymphocytes # (Auto) 3.06 K/uL (1.2-3.4) Monocytes # (Auto) 0.43 K/uL (0.11-0.59) Eosinophils # (Auto) 0.05 K/uL (0-0.5) Basophils # (Auto) 0.04 K/uL (0-0.2) RDW Standard Deviation 41.9 fL (36.4-46.3) RDW Coefficient of Variation 12.4 % (11.5-14.5) Immature Granulocyte % (Auto) 0.1 % Immature Granulocyte # (Auto) 0.01 K/uL (0.00-0.02) Anion Gap 5.0 mmol/L (3-11) Est Creatinine Clear Calc Drug Dose 41.0 ml/min Estimated GFR () 59.1 Estimated GFR (Non- 51.0 BUN/Creatinine Ratio 14.8 (10-20) Calcium Level 9.1 mg/dl (8.5-10.1) Total Bilirubin 0.4 mg/dl (0.2-1) Direct Bilirubin < 0.1 mg/dl (0-0.2) Aspartate Amino Transf (AST/SGOT) 9 U/L (15-37) Alanine Aminotransferase (ALT/SGPT) 19 U/L (12-78) Alkaline Phosphatase 65 U/L (45-117) Total Creatine Kinase 45 U/L (26-192) Creatine Kinase MB 1.2 ng/ml (0.5-3.6) Creatine Kinase MB Ratio 2.7 (0-3.0) Troponin I 0.018 ng/ml (0-0.045) Total Protein 8.4 gm/dl (6.4-8.2) Albumin 4.2 gm/dl (3.4-5.0) Lipase 207 U/L (73-393) Thyroid Stimulating Hormone (TSH) 6.110 uIu/ml (0.300-4.500) Labs reviewed by ED physician. Medications Administered Medications (Trade) Dose Ordered Sig/Nicki Route Start Time Stop Time Status Last Admin Dose Admin Hydrochlorothiazide (Hydrochlorothiazide Tab) 25 mg NOW STAT PO 11/08/17 17:04 11/08/17 17:05 DC 11/08/17 17:11 25 MG ECG Indication: other (allergy) Rate (beats per minute): 80 Rhythm: normal sinus Findings: no ectopy, other (Old inferior infarct, diffused ST depression in inferior and lateral leads) Change: no significant change Change: Patient's Electrocardiogram interpreted by me. ED Course 1654: Past medical records reviewed. The patient was evaluated in room B11. A complete history and physical examination was performed. 1703: Ordered Hydrochlorothiazide 25mg PO. 0: Upon reexamination the patient is feeling significantly better. I discussed results and treatment plan with the patient. She verbalizes agreement and understanding. The patient is ready for discharge. Medical Decision Differential diagnosis: Etiologies such as allergic reaction, anaphylaxis, urticaria, Waller-Scott syndrome, toxic epidermal necrolysis, erythema multiforme, cellulitis, as well as others were entertained. This is a 66-year-old female who presents emergency department complaining of a warm feeling after she takes her lisinopril. In addition to this I will note that the patient has not started medication she was started on a week ago when she was admitted to the hospital. I strongly recommended the patient that she stopped taking her lisinopril I recommended she take hydrochlorothiazide. Instead the patient and her daughter wished to try doubling up on her amlodipine. Regardless I recommended that the patient follow-up with her primary care physician. Both patient and daughter were in agreement with treatment plan. Medication Reconcilliation Current Medication List: was personally reviewed by me Blood Pressure Screening Patient's blood pressure: Elevated blood pressure Blood pressure disposition: Referred to PCP Impression Primary Impression: Hypertension Scribe Attestation The scribe's documentation has been prepared under my direction and personally reviewed by me in its entirety. I confirm that the note above accurately reflects all work, treatment, procedures, and medical decision making performed by me. Departure Information Dispostion Home / Self-Care Referrals RV. Nunn MD (PCP) Forms HOME CARE DOCUMENTATION FORM, IMPORTANT VISIT INFORMATION, WORK / SCHOOL INSTRUCTIONS Patient Instructions My [facility] Additional Instructions STOP taking Lisinopril Increase Amlodipine to 10 mg daily You were found to have an elevated blood pressure today (>120 sytolic or >90 diastolic). Per medicare guidelines, you need to follow up with this blood pressure screening with your Primary Care Physician (PCP). For a new PCP call [phone]. You have been examined and treated today on an emergency basis only. This is not a substitute for, or an effort to provide, complete comprehensive medical care. It is impossible to recognize and treat all injuries or illnesses in a single emergency department visit. It is therefore important that you follow up closely with Dr Dumont. Call as soon as possible for an appointment. Thank you for your time and consideration. I look forward to speaking with you again soon. Please don't hesitate to call us if you have any questions. Problem Qualifiers Primary Impression: Hypertension Hypertension type: unspecified Qualified Codes: I10 - Essential (primary) hypertension
[2017-11-08 17:33] LABS: ALKALINE PHOSPHATASE 65 U/L (45-117); CKMB 1.2 ng/ml (0.5-3.6); TOTAL PROTEIN 8.4 gm/dl (6.4-8.2)
[2017-11-08] MEDS ORDERED: AMLO-110 PO (17:40)
[2017-11-08] MEDS ORDERED: LISI40TA PO (17:40)
[2017-11-08] MEDS ORDERED: ASPI81TA28 PO (17:40)
[2017-11-08] MEDS ORDERED: OMEG10007 PO (17:40)
--- NOTE | 2017-11-08 17:52 | DIAGNOSTIC IMAGING REPORT ---
CHEST ONE VIEW PORTABLE CLINICAL HISTORY: Chest pain. COMPARISON STUDY: No previous studies for comparison. FINDINGS: Lung volumes are normal. Lungs are clear. No pneumothorax or pleural effusion is noted. Pulmonary vascularity is normal. Cardiomediastinal silhouette is unremarkable. IMPRESSION: No acute cardiopulmonary findings. Electronically signed by: Dawson Thapa M.D. 11/08/2017 5:51 PM Dictated Date/Time: 11/08/2017 5:50 PM
[2017-11-08 18:09] VITALS: BP 178/93; PULSE 70; O2SAT 98
== END 2017-11-08 18:24 | disposition home or self-care (01) ==
LOC: MERGE 15:25 → C.EDB 15:25
DX: I10 Essential (primary) hypertension (principal); Z82.49 Family history of ischemic heart disease and other diseases of the circulatory system; Z79.82 Long term (current) use of aspirin; Z79.899 Other long term (current) drug therapy

== ENCOUNTER 2018-02-20 13:31 | Emergency (ER) | payer OTHER ==
[~2018-02-20] VITALS: Ht 160 cm; Wt 62.4 kg
[~2018-02-20 13:31] MED LIST changes: +AMLO-110 PO; -ASPEC81 PO; +ASPI-320 PO; +ASPI81TA28 PO; +LISI40TA PO; +OMEG10007 PO
[2018-02-20 13:39] VITALS: TEMP 37; Ht 160 cm; Wt 62.4 kg
[2018-02-20] MEDS ORDERED: SODIUM CHLORIDE 0.9% 1000ML 1,000 ML IV STA (13:53)
[2018-02-20 14:22] VITALS: O2SAT 98
[2018-02-20 14:22] LABS: BASO % 0.6 %; BASO ABS # 0.05 K/uL (0-0.2); EOS % 1.1 %; HEMATOCRIT 40.2 % (37-47); HEMOGLOBIN 13.9 g/dL (12.0-16.0); IG# 0.02 K/uL (0.00-0.02); LYMPH % 37.4 %; LYMPH ABS # 3.31 K/uL (1.2-3.4); MEAN CELL VOLUME 90.3 fL (80-100); MEAN CORPUSCULAR HEMOGLOBIN 31.2 pg (25-34); MEAN CORPUSCULAR HGB CONC 34.6 g/dl (32-36); MEAN PLATELET VOLUME 9.9 fL (7.4-10.4); MONO % 4.9 %; MONO ABS # 0.43 K/uL (0.11-0.59); NEUT % 55.8 %; NEUT ABS # 4.93 K/uL (1.4-6.5); PLATELET COUNT 308 K/uL (130-400); RED CELL DISTRIBUTION WIDTH CV 12.5 % (11.5-14.5); WHITE BLOOD COUNT 8.84 K/uL (4.8-10.8)
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
[2018-02-20] MEDS ORDERED: OPTIRAY 320 IV PRN (14:30)
[2018-02-20 14:31] LABS: PTT PATIENT 24.8 SECONDS (21.0-31.0)
[2018-02-20 14:41] LABS: ALBUMIN 4.1 gm/dl (3.4-5.0); ALT/SGPT 26 U/L (12-78); AST/SGOT 26 U/L (15-37); BLOOD UREA NITROGEN 24 mg/dl (7-18); CALCIUM 9.2 mg/dl (8.5-10.1); CARBON DIOXIDE 20 mmol/L (21-32); CREATININE 1.13 mg/dl (0.60-1.20); GLUCOSE 92 mg/dl (70-99); LIPASE 143 U/L (73-393); POTASSIUM 3.2 mmol/L (3.5-5.1); SODIUM 139 mmol/L (136-145)
[2018-02-20 14:46] LABS: ALKALINE PHOSPHATASE 76 U/L (45-117); CKMB 4.1 ng/ml (0.5-3.6); TOTAL PROTEIN 7.9 gm/dl (6.4-8.2)
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
--- NOTE | 2018-02-20 16:17 | EMERGENCY ROOM VISIT NOTE ---
ED Visit Note First contact with patient: 13:38 This Patient was discussed with the nurse practitioner, Samantha Mills. The pertinent historical and physical exam findings were confirmed. I agree with the studies ordered and with the interpretations of these studies. I agree with the disposition and care plan.
[2018-02-20 16:32] LABS: ISTAT CREATININE 1.1 mg/dl (0.6-1.3); ISTAT IONIZED CALCIUM 1.12 mmol/l (1.12-1.32); ISTAT POTASSIUM 3.2 mEq/L (3.3-5.0)
[2018-02-20 17:25] VITALS: BP 156/89; PULSE 63; O2SAT 100
== END 2018-02-20 17:26 | disposition home or self-care (01) ==
LOC: EDBD 13:31 → C.EDA 13:33
DX: S20.211A Contusion of right front wall of thorax, initial encounter (principal); M54.6 Pain in thoracic spine; R10.811 Right upper quadrant abdominal tenderness; M25.562 Pain in left knee; V49.40XA Driver injured in collision with unspecified motor vehicles in traffic accident, initial encounter; R03.0 Elevated blood-pressure reading, without diagnosis of hypertension; Z79.82 Long term (current) use of aspirin; Z91.048 Other nonmedicinal substance allergy status